=== PATIENT | male | born 1945 | race Hispanic/Latino ===

== ENCOUNTER 2018-10-31 19:26 | Emergency (ER) | payer OTHER ==
[2018-10-31 21:11] LABS: Absolute Lymphocytes (CBC) 2.1 K/uL (0.7-4.9); Absolute Monocytes 0.6 K/uL (0.1-1.3); Absolute Neutrophil 4.2 K/uL (1.8-8.0); Eosinophils % 12.7 % (0-4.4); Hematocrit 40.7 % (39.6-49.0); Lymphocytes % 25.8 % (15.3-44.8); MPV 8.5 fL (7.6-11.3); Monocytes % 7.8 % (3.3-12.3); RBC Red Blood Cell Count 4.33 M/uL (4.33-5.43)
[2018-10-31 21:11] LABS: Arterial Blood Carboxyhemoglob 0.7 % (0-1.5); Blood Gas Oxyhemoglobin 91.8 % (94-97); Blood O2 Saturation 93.6 % (92-98.5)
--- NOTE | 2018-10-31 21:13 | RAD REPORT ---
EXAM DESCRIPTION: Justino Single View10/31/2018 9:00 pm CLINICAL HISTORY: Cough COMPARISON: none FINDINGS: Left base is mildly hazy. Right lung appears clear. The heart is normal size IMPRESSION: Left base is mildly hazy. This may secondary to overlying soft tissue or a mild infiltr ate. PA and lateral chest series may be helpful for further evaluation if clinically indicated
[2018-10-31] MEDS ORDERED: IPRATROPIUM BROM 0.5MG/2.5ML ONE (21:17)
[2018-10-31] MEDS ORDERED: ALBUTEROL 2.5 MG/3 ML NEB SOL ONE (21:17)
[2018-10-31] MEDS ORDERED: HYDROCODONE/CHLORPHEN 5 ML/OSYR ONE (21:17)
[2018-10-31 21:25] LABS: Protime INR 0.96
[2018-10-31 21:32] LABS: ALT/SGPT 26 U/L (12-78); AST/SGOT 23 U/L (15-37); Albumin 3.7 g/dL (3.4-5.0); Alkaline Phosphatase 78 U/L (45-117); BUN Blood Urea Nitrogen 25 mg/dL (7-18); Bicarbonate 24 mmol/L (21-32); Bilirubin Direct 0.1 mg/dL (0-0.2); Bilirubin Total 0.3 mg/dL (0.2-1.0); Glucose Level 230 mg/dL (74-106); Magnesium 2.1 mg/dL (1.8-2.4); NT PRO-BNP 144 pg/mL (<125); Potassium 3.9 mmol/L (3.5-5.1); Protein, Total 7.4 g/dL (6.4-8.2); Sodium Level 136 mmol/L (136-145); Troponin (Emerg Dept Use Only) < 0.02 ng/mL (0.0-0.045)
--- NOTE | 2018-11-01 00:21 | ER ---
Nurse's Notes [facility] Name: Bo Henry Age: 73 yrs Sex: Male : 1945 Arrival Date: 10/31/2018 Time: 19:27 Bed 25 Private MD: Diagnosis: Bronchitis Presentation: 10/31 19:46 Presenting complaint: Child states: He has had non-stop coughing since July and la1 when he is coughing hard he gets dizzy and began having chest pain. Now pt reports [place]. Transition of care: patient was not received from another setting of care. Onset of symptoms was October 31, 2018. Risk Assessment: Do you want to hurt yourself or someone else? Patient reports no desire to harm self or others. Initial Sepsis Screen: Does the patient meet any 2 criteria? No. Patient's initial sepsis screen is negative. Does the patient have a suspected source of infection? No. Patient's initial sepsis screen is negative. Care prior to arrival: None. 19:46 Method Of Arrival: Ambulatory la1 19:46 Acuity: NOELLE 3 la1 Historical: - Allergies: 19:46 No Known Allergies; la1 - PMHx: 19:46 Diabetes - IDDM; Hypertension; High Cholesterol; la1 - Immunization history:: Adult Immunizations up to date. - Social history:: Smoking status: Patient/guardian denies using tobacco. - Ebola Screening: : No symptoms or risks identified at this time. Screenin:11 Abuse screen: Denies threats or abuse. Nutritional screening: No deficits noted. tl3 Tuberculosis screening: No symptoms or risk factors identified. Fall Risk None identified. Assessment: 20:11 General: Appears uncomfortable, well groomed, well developed, well nourished, Behavior tl3 is calm, cooperative, appropriate for age. Pain: Complains of pain in chest pain with coughing Pain does not radiate. Pain began two weeks ago. Neuro: Level of Consciousness is awake, alert, obeys commands, Oriented to person, place, time, situation, Appropriate for age. Cardiovascular: Heart tones S1 S2 present Patient's skin is warm and dry. Respiratory: Airway is patent Respiratory effort is even, unlabored, Respiratory pattern is regular, symmetrical, Breath sounds with wheezes in left lower lobe and right lower lobe. Respiratory: Reports cough that is dry, hacking, persistent pain with cough. GI: No signs and/or symptoms were reported involving the gastrointestinal system. : No signs and/or symptoms were reported regarding the genitourinary system. 20:11 Reassessment: pt seen at [facility] [place], for same last week, S/S persistent. Finished tl3 Zithromax, three day course and Tessalon pearles. 21:30 Reassessment: Patient appears in no apparent distress at this time. No changes from tl3 previously documented assessment. Patient and/or family updated on plan of care and expected duration. Pain level reassessed. Patient is alert, oriented x 3, equal unlabored respirations, skin warm/dry/pink. no needs at this time. 22:15 Reassessment: Patient appears in no apparent distress at this time. No changes from tl3 previously documented assessment. Patient and/or family updated on plan of care and expected duration. Pain level reassessed. Patient is alert, oriented x 3, equal unlabored respirations, skin warm/dry/pink. 11/01 00:01 Reassessment: No changes from previously documented assessment. Patient and/or family tl3 updated on plan of care and expected duration. Pain level reassessed. Patient is alert, oriented x 3, equal unlabored respirations, skin warm/dry/pink. pt returned from CT, no needs at this time. 00:35 Reassessment:. tl3 Vital Signs: 10/31 19:47 Pulse 74; Resp 18; Temp 98.6(TE); Pulse Ox 95% on R/A; Weight 93.89 kg; Height 5 ft. 5 la1 in. (165.10 cm); 19:49 BP 150 / 76; la1 20:11 BP 145 / 68; Pulse 64; Resp 18; Pulse Ox 96% on R/A; tl3 21:30 BP 123 / 66; Pulse 63; Resp 18; Pulse Ox 99% ; tl3 22:15 BP 117 / 62; Pulse 93; Resp 18; Pulse Ox 95% on R/A; tl3 11/01 00:01 BP 127 / 70; Pulse 96; Resp 18; Pulse Ox 96% on R/A; tl3 10/31 19:47 Body Mass Index 34.45 (93.89 kg, 165.10 cm) la1 ED Course: 10/31 19:27 Patient arrived in ED. ds1 19:47 Triage completed. la1 19:47 Arm band placed on right wrist. la1 19:58 Gabby Kenney, RN is Primary Nurse. tl3 20:11 Patient has correct armband on for positive identification. Pulse ox on. NIBP on. Warm tl3 blanket given. 20:11 No provider procedures requiring assistance completed. Patient maintains SpO2 tl3 saturation greater than 95% on room air. 20:20 William Grande MD is Attending Physician. pkl 20:38 EKG done, by ED staff, reviewed by William Grande MD. jp3 20:39 Pillow given. jp3 20:58 XRAY Chest (1 view) In Process Unspecified. EDMS 21:00 Inserted saline lock: 20 gauge in left antecubital area, using aseptic technique. Blood jp3 collected. 21:10 Initial lab(s) drawn, by me, sent to lab. ABG drawn. by RT staff, on room air. jp3 21:11 Basic Metabolic Panel Sent. jp3 21:11 ABG Sent. jp3 21:11 D-Dimer Sent. jp3 21:11 Basic Metabolic Panel Sent. jp3 23:[address] via stretcher. kw1 23:40 CT completed. Patient tolerated procedure well. Patient moved back from CT. kw1 23:51 CT Chest For PE Angio In Process Unspecified. EDMS 0218 00:35 IV discontinued, intact, bleeding controlled, No redness/swelling at site. Pressure tl3 dressing applied. Administered Medications: 10/31 21:15 Drug: Albuterol - atroVENT (3:1) (2.5 mg - 0.5 mg) 3 ml Route: Nebulizer; tl3 21:47 Follow up: Response: No adverse reaction tl3 21:15 Drug: Tussionex Pennkinetic ER 5 ml Route: PO; tl3 21:46 Follow up: Response: No adverse reaction tl3 Outcome: 11/01 00:20 Discharge ordered by . pkl 00:35 Discharged to home ambulatory. tl3 00:35 Condition: stable 00:35 Discharge instructions given to patient, family, Instructed on discharge instructions, follow up and referral plans. medication usage, Demonstrated understanding of instructions, follow-up care, medications, Prescriptions given X 2. 00:36 Patient left the ED. tl3 Signatures: Dispatcher [employer] William Coats MD MD pkl Teetee Pisano ds1 Robin Valdivia RN RN la1 Norma Alvarez1 Gabby Kenney RN RN tl3 Benedict Munoz jp3
--- NOTE | 2018-11-01 00:22 | EDPHYS ---
Physician Documentation [facility] Name: Bo Henry Age: 73 yrs Sex: Male : 1945 Arrival Date: 10/31/2018 Time: 19:27 Bed 25 Private MD: ED Physician William Grande HPI: 10/31 20:59 This 73 yrs old Male presents to ER via Ambulatory with complaints of Chest pkl Wall Pain, Cough, Dizziness. 20:59 The patient or guardian reports cough. Onset: The symptoms/episode began/occurred 2 pkl month(s) ago, and became worse past few days. Associated signs and symptoms: Pertinent positives: dizziness. Historical: - Allergies: 19:46 No Known Allergies; la1 - PMHx: 19:46 Diabetes - IDDM; Hypertension; High Cholesterol; la1 - Immunization history:: Adult Immunizations up to date. - Social history:: Smoking status: Patient/guardian denies using tobacco. - Ebola Screening: : No symptoms or risks identified at this time. ROS: 20:59 Eyes: Negative for injury, pain, redness, and discharge, ENT: Negative for injury, pkl pain, and discharge, Neck: Negative for injury, pain, and swelling, Cardiovascular: Negative for chest pain, palpitations, and edema. 20:59 Respiratory: Positive for cough, with clear sputum. 20:59 Abdomen/GI: Negative for abdominal pain, nausea, vomiting, and diarrhea. 20:59 Back: Negative for acute changes. 20:59 : Negative for urinary symptoms. 20:59 MS/extremity: Negative for acute changes. 20:59 Skin: Negative for rash. 20:59 Neuro: Negative for altered mental status. Exam: 20:59 Head/Face: Normocephalic, atraumatic. Eyes: Pupils equal round and reactive to light, pkl extra-ocular motions intact. Lids and lashes normal. Conjunctiva and sclera are non-icteric and not injected. Cornea within normal limits. Periorbital areas with no swelling, redness, or edema. ENT: Nares patent. No nasal discharge, no septal abnormalities noted. Tympanic membranes are normal and external auditory canals are clear. Oropharynx with no redness, swelling, or masses, exudates, or evidence of obstruction, uvula midline. Mucous membranes moist. Neck: Trachea midline, no thyromegaly or masses palpated, and no cervical lymphadenopathy. Supple, full range of motion without nuchal rigidity, or vertebral point tenderness. No Meningismus. Chest/axilla: Normal chest wall appearance and motion. Nontender with no deformity. No lesions are appreciated. Cardiovascular: Regular rate and rhythm with a normal S1 and S2. No gallops, murmurs, or rubs. Normal PMI, no JVD. No pulse deficits. Respiratory: Lungs have equal breath sounds bilaterally, clear to auscultation and percussion. No rales, rhonchi or wheezes noted. No increased work of breathing, no retractions or nasal flaring. Abdomen/GI: Soft, non-tender, with normal bowel sounds. No distension or tympany. No guarding or rebound. No evidence of tenderness throughout. Back: No spinal tenderness. No costovertebral tenderness. Full range of motion. Skin: Warm, dry with normal turgor. Normal color with no rashes, no lesions, and no evidence of cellulitis. MS/ Extremity: Pulses equal, no cyanosis. Neurovascular intact. Full, normal range of motion. Neuro: Awake and alert, GCS 15, oriented to person, place, time, and situation. Cranial nerves II-XII grossly intact. Motor strength 5/5 in all extremities. Sensory grossly intact. Cerebellar exam normal. Normal gait. Vital Signs: 19:47 Pulse 74; Resp 18; Temp 98.6(TE); Pulse Ox 95% on R/A; Weight 93.89 kg; Height 5 ft. 5 la1 in. (165.10 cm); 19:49 BP 150 / 76; la1 20:11 BP 145 / 68; Pulse 64; Resp 18; Pulse Ox 96% on R/A; tl3 21:30 BP 123 / 66; Pulse 63; Resp 18; Pulse Ox 99% ; tl3 22:15 BP 117 / 62; Pulse 93; Resp 18; Pulse Ox 95% on R/A; tl3 11/01 00:01 BP 127 / 70; Pulse 96; Resp 18; Pulse Ox 96% on R/A; tl3 10/31 19:47 Body Mass Index 34.45 (93.89 kg, 165.10 cm) la1 MDM: 10/31 20:20 Patient medically screened. pkl 11/01 00:18 Data reviewed: vital signs, nurses notes, lab test result(s), EKG, radiologic studies, pkl CT scan, plain films. 10/31 20:44 Order name: Basic Metabolic Panel pkl 10/31 20:44 Order name: CBC with Diff; Complete Time: 21:44 pkl 10/31 20:44 Order name: LFT's; Complete Time: 21:36 pkl 10/31 20:44 Order name: Magnesium; Complete Time: 21:36 pkl 10/31 20:44 Order name: NT PRO-BNP; Complete Time: 21:36 pkl 10/31 20:44 Order name: PT-INR; Complete Time: 00:18 pkl 10/31 20:44 Order name: Troponin (emerg Dept Use Only); Complete Time: 21:36 pkl 10/31 20:44 Order name: XRAY Chest (1 view); Complete Time: 21:20 pkl 10/31 20:44 Order name: D-Dimer; Complete Time: 00:18 pkl 10/31 20:44 Order name: ABG; Complete Time: 21:20 pkl 10/31 20:45 Order name: Basic Metabolic Panel; Complete Time: 21:36 EDMS 10/31 21:47 Order name: CT Chest For PE Angio pkl 10/31 20:44 Order name: EKG; Complete Time: 20:45 pkl 10/31 20:44 Order name: Cardiac monitoring; Complete Time: 21:06 pkl 10/31 20:44 Order name: EKG - Nurse/Tech; Complete Time: 21:07 pkl 10/31 20:44 Order name: IV Saline Lock; Complete Time: 21:11 pkl 10/31 20:44 Order name: Labs collected and sent; Complete Time: 21:11 pkl 10/31 20:44 Order name: O2 Per Protocol; Complete Time: 21:06 pkl 10/31 20:44 Order name: O2 Sat Monitoring; Complete Time: 21:07 pkl Administered Medications: 10/31 21:15 Drug: Albuterol - atroVENT (3:1) (2.5 mg - 0.5 mg) 3 ml Route: Nebulizer; tl3 21:47 Follow up: Response: No adverse reaction tl3 21:15 Drug: Tussionex Pennkinetic ER 5 ml Route: PO; tl3 21:46 Follow up: Response: No adverse reaction tl3 Disposition: 11/01/18 00:20 Discharged to Home. Impression: Bronchitis. - Condition is Stable. - Prescriptions for Albuterol Sulfate 90 mcg/actuation - inhale 1-2 puff by INHALATION route every 4-6 hours; 1 Inhaler. Guaifenesin AC 10- 100 mg/5 mL Oral Liquid - take 10 milliliters by ORAL route every 8 hours As needed; 120 milliliter. - Medication Reconciliation Form, Thank You Letter, Antibiotic Education, Prescription Opioid Use form. - Follow up: Private Physician; When: 2 - 3 days; Reason: Re-evaluation by your physician. - Problem is new. - Symptoms have improved. Signatures: Dispatcher [employer] [facility] William Grande MD MD pkl Robin Valdivia RN RN la1 Gabby Kenney RN RN tl3 Corrections: (The following items were deleted from the chart) 11/01 00:36 00:20 11/01/2018 00:20 Discharged to Home. Impression: Bronchitis. Condition is Stable. tl3 Forms are Medication Reconciliation Form, Thank You Letter, Antibiotic Education, Prescription Opioid Use. Follow up: Private Physician; When: 2 - 3 days; Reason: Re-evaluation by your physician. Problem is new. Symptoms have improved. pkl
--- NOTE | 2018-11-01 07:39 | EKG ---
Test Date: 2018-10-31 Test Time: 20:32:10 Employment Representative: JOSE LUIS MEASUREMENT RESULTS: Intervals: Rate: 68 OH: 184 QRSD: 94 QT: 372 QTc: 395 [place]: P: 54 OH: 184 QRS: -15 T: 38 INTERPRETIVE STATEMENTS: Normal sinus rhythm Normal ECG No previous ECG available for comparison Electronically Signed On 11-01-18 07:37:33 BUILDING CONSULTANT by Ritesh Antonio
--- NOTE | 2018-11-01 21:05 | RAD REPORT ---
EXAM DESCRIPTION: CT - Chest For Pe Angio - 11/01/2018 6:47 am CLINICAL HISTORY: 73 years Male, Cough, Dyspnea. COMPARISON: None. TECHNIQUE: 3.0 mm axial images of the thorax were obtained with IV contrast. 3 mm coronal and sagitt al reformatted images were obtained. 2 mm RPA and LPA images were obtained. This exam was performed according to our departmental dose-optimization program, which includes autom ated exposure control, adjustment of the mA and/or kV according to patient size and/or less of iterat carol reconstruction technique. FINDINGS: Lung saldaña: No active infiltrates. No mass lesions. No pneumothorax. There is mild depend ent bibasilar atelectasis. Mediastinal structures: No evidence of aortic aneurysm or dissection. No pericardial effusion. No gaurav nopathy. Pulmonary arteries: No evidence of pulmonary embolus. Pleural space: Unremarkable. Axilla: No adenopathy. Upper abdomen: Increased stool in the visualized portions of the colon. IMPRESSION: 1. No evidence of pulmonary embolism. 2. No active infiltrates. 3. Increased stool in the visualized portions of the colon. Electronically signed by Brandin Romeo MD 10/31/2018 11:57 PM TRUCK SUPERVISOR Due to temporary technical issues with the PACS/Fluency reporting system, reports are being signed by the in house radiologist as a courtesy to ensure prompt reporting. The interpreting radiologist is f ully responsible for the content of the report.
== END 2018-11-01 00:36 | disposition home or self-care (01) ==
LOC: ER 19:26
DX: J40 Bronchitis, not specified as acute or chronic (principal); E11.9 Type 2 diabetes mellitus without complications; I10 Essential (primary) hypertension; E78.00 Pure hypercholesterolemia, unspecified; Z79.4 Long term (current) use of insulin
CPT/HCPCS: 36415; 71045; 71275; 80048; 80076; 82805; 83735; 83880; 84484; 85025; 85379; 85610; 93005; 94640; 99285; Q9967